=== PATIENT | female | born 1950 | race Caucasian/White ===

== ENCOUNTER → 2017-09-19 | Outpatient (CLI) | payer MEDICARE ==
--- NOTE | 2017-09-20 07:56 | BD ---
EXAMINATION TYPE: Axial Bone Density DATE OF EXAM: 09/19/2017 COMPARISON: 2016 CLINICAL HISTORY: post menopausal Height: 65 Weight: 151.8 FRAX RISK QUESTIONS: History of Fracture in Adulthood: rt wrist RISK FACTORS HISTORY OF: History of Wrist Fracture: right When: 2009 Family History of Osteoporosis: yes Active: yes Postmenopausal woman: yes MEDICATIONS: Additional Medications: cholesterol Additional History: gerd EXAM MEASUREMENTS: Bone mineral densitometry was performed using the [employer] System. Bone mineral density as measured about the Lumbar spine is: ----- L1-L4(G/cm2): 0.904 T Score Values are as follows: ----- L2: -2.3 ----- L3: -2.0 ----- L4: -2.7 ----- L1-L4: -2.3 Bone mineral density has: Decreased -5.2% since study of: 08/07/15 Bone mineral density about the R hip (g/cm2): 0.718 Bone mineral density about the L hip (g/cm2): 0.685 T Score values are as follows: -----R Neck: -2.3 -----L Neck: -2.5 -----R Total: -1.7 -----L Total: -1.8 Bone mineral density has: Decreased -1.5% since study of: 08/07/15 IMPRESSION: Osteopenia (T Score between -2.5 and -1). There is slightly increased risk of fracture and the patient may be considered for treatment. Re-Screen 2-5 years. NOTE: T-SCORE=SD OF THE YOUNG ADULT MEAN.
--- NOTE | 2017-09-20 10:39 | MM ---
Reason for exam: screening (asymptomatic). Last mammogram was performed 1 year and 6 months ago. History: Patient is postmenopausal. Family history of premenopausal breast cancer in sister at age 50 and breast cancer in mother at age 70. Took hormonal contraceptives for 2 years 6 months beginning at age 21. Took estrogen for 3 years beginning at age 49. Took progesterone for 3 years beginning at age 49. Physical Findings: A clinical breast exam by your physician is recommended on an annual basis and results should be correlated with mammographic findings. MG 3D Screening Mammo W/Cad Bilateral CC and MLO view(s) were taken. Prior study comparison: March 08, 2016, bilateral MG 3d screening mammo w/cad. February 20, 2015, bilateral MG screening mammo w CAD. There are scattered fibroglandular densities. No significant changes when compared with prior studies. ASSESSMENT: Benign, BI-RAD 2 RECOMMENDATION: Routine screening mammogram of both breasts in 1 year.
== END | disposition home or self-care (01) ==
LOC: RADMAMWWP 14:01
PROVIDERS: ATTEND Family Medicine
DX: Z12.31 Encounter for screening mammogram for malignant neoplasm of breast (principal); M85.80 Other specified disorders of bone density and structure, unspecified site; Z78.0 Asymptomatic menopausal state
CPT/HCPCS: 77063; 77067; 77080

== ENCOUNTER → 2018-08-28 | Outpatient (CLI) | payer MEDICARE ==
--- NOTE | 2018-09-12 23:35 | EM ---
EVENT MONITOR REFERRING PHYSICIAN: Dr. De Jesus. INDICATIONS: Palpitations. CLINICAL INFORMATION: The patient was monitored for 7 days. The baseline rhythm appeared to be a sinus mechanism. The patient did have multiple episodes of sinus tachycardia. Also, she did have multiple episodes of paroxysmal atrial tachycardia with a heart rate around 150 beats per minute. The patient also did have 1 episode of nonsustained ventricular tachycardia. No evidence of sinus pause or sinus arrest seen. No evidence of any advanced AV block seen. CONCLUSION: 1. This is a 7 days event monitor. 2. The patient did have multiple episode of paroxysmal atrial tachycardia. 3. The patient did have multiple episodes of sinus bradycardia with a heart rate in the 50s. 4. The patient did have 1 episode of nonsustained ventricular tachycardia. 5. No evidence of any sinus pause or sinus arrest. 6. There is no evidence of any advanced AV block seen. MMODL / KAYN: [id number] /
== END | disposition home or self-care (01) ==
LOC: RADECHMAIN 11:49
PROVIDERS: ATTEND Family Medicine
DX: I47.1 Supraventricular tachycardia (principal); I47.2 Ventricular tachycardia; R00.1 Bradycardia, unspecified
CPT/HCPCS: 93225

== ENCOUNTER → 2018-09-26 | Outpatient (CLI) | payer MEDICARE ==
--- NOTE | 2018-09-27 09:40 | MM ---
Reason for exam: screening (asymptomatic). Last mammogram was performed 1 year ago. History: Patient is postmenopausal. Family history of premenopausal breast cancer in sister at age 50 and breast cancer in mother at age 70. Took hormonal contraceptives for 2 years 6 months beginning at age 21. Took estrogen for 3 years beginning at age 49. Took progesterone for 3 years beginning at age 49. Physical Findings: A clinical breast exam by your physician is recommended on an annual basis and results should be correlated with mammographic findings. MG 3D Screening Mammo W/Cad Bilateral CC and MLO view(s) were taken. Prior study comparison: September 19, 2017, bilateral MG 3d screening mammo w/cad. March 08, 2016, bilateral MG 3d screening mammo w/cad. The breast tissue is heterogeneously dense. This may lower the sensitivity of mammography. No significant changes when compared with prior studies. ASSESSMENT: Benign, BI-RAD 2 RECOMMENDATION: Routine screening mammogram of both breasts in 1 year.
== END | disposition home or self-care (01) ==
LOC: RADMAMWWP 15:15
PROVIDERS: ATTEND Family Medicine
DX: Z12.31 Encounter for screening mammogram for malignant neoplasm of breast (principal); Z80.3 Family history of malignant neoplasm of breast
CPT/HCPCS: 77063; 77067

== ENCOUNTER → 2019-11-12 | Outpatient (CLI) | payer MEDICARE ==
--- NOTE | 2019-11-13 09:04 | BD ---
EXAMINATION TYPE: Axial Bone Density DATE OF EXAM: 11/12/2019 COMPARISON: NONE CLINICAL HISTORY: Height: 5 ft 4 3/4 in Weight: 154 FRAX RISK QUESTIONS: Alcohol (3 or more units per day): NO Family History (Parent hip fracture): NO Glucocorticoids (More than 3mos): NO (Ex: prednisone, prednisolone, methylprednisolone, dexamethasone, and hydrocortisone). History of Fracture in Adulthood: YES Secondary Osteoporosis: 1. Type 1 Diabetes: NO 2. Hyperthyroidism: NO 3. Menopause before 45: NO 4. Malnutrition: NO 5. Chronic liver disease: NO Rheumatoid Arthritis: NO Current Tobacco Use: NO RISK FACTORS HISTORY OF: History of Wrist Fracture: RT WRIST When: 2010 Family History of Osteoporosis: YES Active: YES Postmenopausal woman: AGE 50 Take estrogen and/or progesterone medications: TOOK HRT FROM [age] Lost more than 2 inches in height since high school: YES MEDICATIONS: ,Additional Medications: CRESTOR, ASPIRIN, ACID REFLUX MEDS NEEDED , Additional History: EXAM MEASUREMENTS: Bone mineral densitometry was performed using the [employer] System. Bone mineral density as measured about the Lumbar spine is: ----- L1-L4(G/cm2): 0.954 T Score Values are as follows: ----- L2: -2.3 ----- L3: -1.7 ----- L4: -2.1 ----- L1-L4: -1.9 Bone mineral density has: INCREASED 3.8 % since study of: 2017 Bone mineral density about the R hip (g/cm2): 0.736 Bone mineral density about the L hip (g/cm2): 0.724 T Score values are as follows: -----R Neck: -2.2 -----L Neck: -2.3 -----R Total: -1.5 -----L Total: -1.8 Bone mineral density has: INCREASED 2.5 % since study of: 2014 IMPRESSION: Osteopenia noted. NOTE: T-SCORE=SD OF THE YOUNG ADULT MEAN.
--- NOTE | 2019-11-19 10:29 | MM ---
Reason for exam: screening (asymptomatic). Last mammogram was performed 1 year and 1 month ago. History: Patient is postmenopausal. Family history of premenopausal breast cancer in sister at age 50 and breast cancer in mother at age 70. Took hormonal contraceptives for 2 years 6 months beginning at age 21. Took estrogen for 3 years beginning at age 49. Took progesterone for 3 years beginning at age 49. Physical Findings: A clinical breast exam by your physician is recommended on an annual basis and results should be correlated with mammographic findings. MG 3D Screening Mammo W/Cad Bilateral CC and MLO view(s) were taken. Prior study comparison: September 26, 2018, bilateral MG 3d screening mammo w/cad. September 19, 2017, bilateral MG 3d screening mammo w/cad. There are scattered fibroglandular densities. No significant changes when compared with prior studies. ASSESSMENT: Benign, BI-RAD 2 RECOMMENDATION: Routine screening mammogram of the right breast in 1 year.
== END | disposition home or self-care (01) ==
LOC: RADMAMWWP 15:24
PROVIDERS: ATTEND Family Medicine
DX: Z12.31 Encounter for screening mammogram for malignant neoplasm of breast (principal); M81.0 Age-related osteoporosis without current pathological fracture
CPT/HCPCS: 77063; 77067; 77080

== ENCOUNTER → 2021-01-27 | Outpatient (CLI) | payer MEDICARE ==
--- NOTE | 2021-01-28 10:35 | MM ---
Reason for exam: screening (asymptomatic). Last mammogram was performed 1 year and 3 months ago. History: Patient is postmenopausal. Family history of premenopausal breast cancer in sister at age 50 and breast cancer in mother at age 70. Took hormonal contraceptives for 2 years 6 months beginning at age 21. Took estrogen for 3 years beginning at age 49. Took progesterone for 3 years beginning at age 49. Physical Findings: A clinical breast exam by your physician is recommended on an annual basis and results should be correlated with mammographic findings. MG 3D Screening Mammo W/Cad Bilateral CC and MLO view(s) were taken. Prior study comparison: November 12, 2019, bilateral MG 3d screening mammo w/cad. September 26, 2018, bilateral MG 3d screening mammo w/cad. Benign appearing calcifications in the left breast. No significant changes when compared with prior studies. ASSESSMENT: Benign, BI-RAD 2 RECOMMENDATION: Routine screening mammogram of both breasts in 1 year.
== END | disposition home or self-care (01) ==
LOC: RADMAMWWP 09:19
PROVIDERS: ATTEND Family Medicine
DX: Z12.31 Encounter for screening mammogram for malignant neoplasm of breast (principal); Z80.3 Family history of malignant neoplasm of breast
CPT/HCPCS: 77063; 77067

== ENCOUNTER → 2022-02-09 | Outpatient (CLI) | payer MEDICARE ==
--- NOTE | 2022-02-09 15:30 | BD ---
EXAMINATION TYPE: Axial Bone Density DATE OF EXAM: 02/09/2022 COMPARISON: 11-12-19 CLINICAL HISTORY: 72 years year old Female. ICD-10 CODE: M81.0 osteoporosis Height: 65IN Weight: 156LB FRAX RISK QUESTIONS: History of Fracture in Adulthood: YES Secondary Osteoporosis: RISK FACTORS HISTORY OF: History of Wrist Fracture: YES When: 2010 Family History of Osteoporosis: YES Active: YES Postmenopausal woman: YES Take estrogen and/or progesterone medications: YES, NONE CURRENT How lon-52 Lost more than 2 inches in height since high school: YES MEDICATIONS: Additional Medications: CHOLESTEROL MED, CALCIUM WITH VITAMIN D Additional History: EXAM MEASUREMENTS: Bone mineral densitometry was performed using the [employer] System. Bone mineral density as measured about the Lumbar spine is: ----- L1-L4(G/cm2): 0.969 T Score Values are as follows: ----- L1: -1.6 ----- L2: -2.2 ----- L3: -1.6 ----- L4: -1.9 ----- L1-L4: -1.8 Bone mineral density has: Increased 2.1% since study of: 11-12-19 Bone mineral density about the R hip (g/cm2): 0.821 Bone mineral density about the L hip (g/cm2): 0.777 T Score values are as follows: -----R Neck: -2.2 -----L Neck: -2.1 -----R Total: -1.5 -----L Total: -1.8 Bone mineral density has: Decreased 0.7% since study of: 11-12-19 FRAX%s: The graph provided illustrates a 20.8% chance for a major osteoporotic fx and a 4.7% chance f or the hips probability for fx in 10 years time. IMPRESSION: Osteopenia (T Score between -2.5 and -1). There is slightly increased risk of fracture and the patient may be considered for treatment. Re-Screen 2-5 years. NOTE: T-SCORE=SD OF THE YOUNG ADULT MEAN.
--- NOTE | 2022-02-10 08:15 | MM ---
Reason for Exam: Screening (asymptomatic). Last mammogram was performed 1 year(s) and 1 month(s) ago. Patient History: Menarche at age 11. First Full-Term at age 24. Postmenopausal. Estrogen for 3 years from age 49 until age 52. Progesterone for 3 years from age 49 until age 52. Hormonal Contraceptives for 2 years, 6 months, from age 21 until age 24. Sister had breast cancer, age 50. Mother had breast cancer, age 70. Risk Values: Christelle 5 year model risk: 7.8%. NCI Lifetime model risk: 19.0%. Prior Study Comparison: 09/26/2018 Bilateral Screening Mammogram, [facility]. 11/12/2019 Bilateral Screening Mammogram, [facility]. 01/27/2021 Bilateral Screening Mammogram, [facility]. Tissue Density: The breast tissue is heterogeneously dense. This may lower the sensitivity of mammography. Findings: Analyzed By CAD. There is no suspicious group of microcalcifications or new suspicious mass in either breast. Overall Assessment: Negative, BI-RAD 1 Management: Screening Mammogram of both breasts in 1 year. A clinical breast exam by your physician is recommended on an annual basis and results should be correlated with mammographic findings. Electronically signed and approved by: Gurwinder Williamson M.D. Radiologis
== END | disposition home or self-care (01) ==
LOC: RADMAMWWP 13:49
PROVIDERS: ATTEND Family Medicine
DX: Z12.31 Encounter for screening mammogram for malignant neoplasm of breast (principal); M85.89 Other specified disorders of bone density and structure, multiple sites; Z78.0 Asymptomatic menopausal state; Z80.3 Family history of malignant neoplasm of breast
CPT/HCPCS: 77063; 77067; 77080

== ENCOUNTER → 2022-05-10 | Outpatient (CLI) | payer MEDICARE ==
--- NOTE | 2022-05-10 14:08 | CT ---
EXAMINATION TYPE: CT sinus wo con DATE OF EXAM: 05/10/2022 COMPARISON: None HISTORY: Sinus pressure prior to upcoming route canal. CT DLP: 1308.8 mGycm. Automated Exposure Control for Dose Reduction was Utilized. TECHNIQUE: CT scan of the sinuses is performed without contrast, axial images are obtained, coronal r eformatted images are also reviewed. FINDINGS: The paranasal sinuses including the frontal, ethmoid, sphenoid, and maxillary sinuses bila terally are well-aerated without abnormal opacification. The ostiomeatal complex is patent bilateral ly on the coronal images. Visualized portion of mastoid air cells show no abnormal opacification. The globes are intact bilate rally. Nasal septal deviation noted. Stents of dental artifact noted securing portions of the exam. IMPRESSION: The sinuses are clear and the ostiomeatal complex is patent bilaterally.
== END | disposition home or self-care (01) ==
LOC: RADCTMAIN 13:16
PROVIDERS: ATTEND Otolaryngology
DX: J32.9 Chronic sinusitis, unspecified (principal)
CPT/HCPCS: 70486

== ENCOUNTER → 2023-02-28 | Outpatient (CLI) | payer MEDICARE ==
--- NOTE | 2023-03-01 19:16 | MM ---
Reason for Exam: Screening (asymptomatic). Last screening mammogram was performed 12 month(s) ago. Patient History: Menarche at age 11. First Full-Term at age 24. Postmenopausal. Estrogen for 3 years from age 49 until age 52. Progesterone for 3 years from age 49 until age 52. Hormonal Contraceptives for 2 years, 6 months, from age 21 until age 24. Sister had breast cancer, age 50. Mother had breast cancer, age 70. Risk Values: Christelle 5 year model risk: 7.8%. NCI Lifetime model risk: 18.1%. Prior Study Comparison: 11/12/2019 Bilateral Screening Mammogram, [facility]. 01/27/2021 Bilateral Screening Mammogram, [facility]. 02/09/2022 Bilateral MG 3D screening mammo w/cad, [facility]. Tissue Density: There are scattered fibroglandular densities. Findings: Analyzed By CAD. Asymmetric density superior aspect of the left breast remains unchanged. There is no suspicious group of microcalcifications or new suspicious mass in either breast. Overall Assessment: Benign, BI-RAD 2 Management: Screening Mammogram of both breasts in 1 year. See note below in regards to patient's increased five-year Christelle score. Patient should continue monthly self-breast exams. A clinical breast exam by your physician is recommended on an annual basis. This exam should not preclude additional follow-up of suspicious palpable abnormalities. Note on Christelle scores and lifetime risk: 1. A Christelle score greater than 3% is considered moderate risk. If this is the case, consider specialist referral to assess eligibility for a risk reducing agent. 2. If overall lifetime risk for the development of breast cancer is 20% or higher, the patient may qualify for future screening with alternating mammogram and breast MRI. Electronically signed and approved by: Ijeoma Newby M.D. Radiologist
== END | disposition home or self-care (01) ==
LOC: RADMAMWWP 14:38
PROVIDERS: ATTEND Family Medicine
DX: Z12.31 Encounter for screening mammogram for malignant neoplasm of breast (principal); Z78.0 Asymptomatic menopausal state; Z80.3 Family history of malignant neoplasm of breast
CPT/HCPCS: 77063; 77067

== ENCOUNTER 2023-05-25 05:49 | Day surgery (SDC) | payer MEDICARE ==
[2023-05-25] MEDS ORDERED: HEPARIN SODIUM,PORCINE 10,000 UNIT in SODIUM CHLORIDE 0.9% 1,000 ML IRRIGATION PRN (05:54)
[2023-05-25] MEDS ORDERED: ALPRAZolam 0.25 MG TAB PO PRN (05:54)
[2023-05-25] MEDS ORDERED: ALPRAZolam 0.5 MG TAB PO PRN (05:54)
[2023-05-25] MEDS ORDERED: NITROGLYCERIN SL TABS 0.4 MG TAB SUBLINGUAL PRN ×2 (05:54→09:03)
[2023-05-25] MEDS ORDERED: HEPARIN SODIUM,PORCINE (1 ML) 2,500 UNIT in SODIUM CHLORIDE 0.9% 250 ML IRRIGATION PRN (05:54)
[2023-05-25] MEDS: SODIUM CHLORIDE 0.9% 1,000 ML IV ONE (06:09)
[2023-05-25 06:37] LABS: Basophils # (A) 0.1 k/uL (0-0.2); Basophils % (A) 1 %; Eosinophils # (A) 0.2 k/uL (0-0.7); Eosinophils % (A) 4 %; HCT 42.2 % (34.0-46.0); HGB 13.8 gm/dL (11.4-16.0); Lymphocytes # (A) 1.5 k/uL (1.0-4.8); Lymphocytes % (A) 21 %; MCH 28.9 pg (25.0-35.0); MCHC 32.7 g/dL (31.0-37.0); MCV 88.3 fL (80.0-100.0); Monocytes # (A) 0.4 k/uL (0-1.0); Monocytes % (A) 6 %; Neutrophils # (A) 4.6 k/uL (1.3-7.7); Neutrophils % (A) 66 %; Platelet Count 219 k/uL (150-450); RBC 4.78 m/uL (3.80-5.40); RDW 12.4 % (11.5-15.5)
[2023-05-25 06:57] LABS: African American GFR (CKD) >90 (>60 ml/min/1.73 sqM); Anion Gap 8 mmol/L; Blood Urea Nitrogen 21 mg/dL (7-17); Calcium 9.3 mg/dL (8.4-10.2); Carbon Dioxide 24 mmol/L (22-30); Chloride 106 mmol/L (98-107); Glucose 107 mg/dL (74-99); Non-African American GFR(CKD) 82 (>60 ml/min/1.73 sqM); Sodium 138 mmol/L (137-145)
[2023-05-25] MEDS ORDERED: LIDOCAINE 1% INJ 10MG/ML (20 ML MDV) ONE ×2 (07:16→07:25)
[2023-05-25] MEDS ORDERED: VERAPAMIL 2.5 MG/ML 2 ML AMP ONE (07:16)
[2023-05-25] MEDS ORDERED: HEPARIN SODIUM 1,000 UN/ML (10ML VL) ONE (07:17)
[2023-05-25] MEDS ORDERED: fentaNYL (PF) 50 MCG/ML 2 ML AMP ONE (07:17)
[2023-05-25] MEDS: fentaNYL (PF) 50 MCG/ML 2 ML AMP IVP ONE (07:39)
[2023-05-25] MEDS: LIDOCAINE 1% INJ 10MG/ML (20 ML MDV) SQ ONE (07:42)
[2023-05-25] MEDS: HEPARIN SODIUM 1,000 UN/ML (10ML VL) IVP ONE (08:05)
[2023-05-25] MEDS ORDERED: CLOPIDOGREL 75 MG TAB ONE (08:05)
[2023-05-25] MEDS: CLOPIDOGREL 75 MG TAB PO ONE (08:07)
[2023-05-25] MEDS: IOPAMIDOL-370 100ML BTL INJ ONE ×2 (08:23→08:49)
[2023-05-25] MEDS: NITROGLYCERIN 1000MCG/10ML SYRINGE INTRACORON ONE (08:31)
[2023-05-25] MEDS: MIDAZOLAM 2 MG/2 ML VIAL IVP ONE (08:36)
[2023-05-25] MEDS ORDERED: RX INFO: IV CONTRAST WAS GIVEN 1 EACH MISC MISCELLANE PRN (09:03)
[2023-05-25] MEDS ORDERED: MAG HYDROX/AL HYDROX/SIMETH 30 ML CUP PO PRN (09:03)
[2023-05-25] MEDS ORDERED: ATROPINE SULFATE 0.1 MG/ML 10ML SYRINGE IV PRN (09:03)
[2023-05-25] MEDS ORDERED: ZOLPIDEM 5 MG TAB PO PRN (09:03)
--- NOTE | 2023-05-25 09:16 | P.CARDCATH ---
Date of Procedure: 05/25/23 Description of Procedure: Cardiac Catheterization: The patient is a 73-year-old female with history of hyperlipidemia who has been complaining of progressive dyspnea on exertion for the last few months and had an EKG showing new ST segment and T wave changes inferiorly. Recommendations were made regarding cardiac catheterization, the risks and the complications were discussed with the patient who is in full understanding and agreement. Procedure Description: Patient was brought to cleaner laboratory equipment in fasting semi-sedated state after receiving Fentanyl and Benadryl achieiving moderate conscious sedated state. Using Xylocaine Anesthesia and modified Seldinger technique, using micropuncture technique a 6-Moldovan sheath was introduced in the right femoral artery . Attempt to cannulate the right radial artery were unsuccessful because of vasospasm. Subsequently, selective coronary angiography was performed using a 6-Moldovan 4 bend Suman catheter. Multiple views of the coronary artery including hemiaxial views were obtained. The 6 Moldovan pigtail catheter was used to cross the aortic valve and LVEDP was calculated. PCI: Using a 6 Moldovan FR 4 guiding catheter the right coronary ostium was cannulated, subsequently a 0.014 BMW J-wire was positioned distally. A 2.5 x 12 mm trek balloon was advanced and inflation at 8 bailey was done, subsequently a [employer] [place] eye IVUS catheter was introduced and images were obtained. After that a 2.75 x 23 mm Xience latha point stent was deployed at 16 bailey and after removing the balloon a 2.75 x 15 mm Xience latha point stent was deployed proximal to the first 1 at 16 bailey. Repeat IVUS images were obtained and subsequently a 3.0 x 20 mm NC trek balloon was advanced and inflations in the stents at 10 bailey were done. After the last inflation the wire withdrawn back in the getting catheter and images were obtained and revealed stable successful stenting. Following that, catheter and sheath were removed. Hemostasis was obtained with deployment of an Angio-Seal. There was no immediate complication. Patient was returned to room in stable condition. Of note, the patient received a total of 5500 units of intravenous heparin as well as intra-arterial verapamil. She received an oral loading dose of clopidogrel. Her ACT was monitored. She had mild chest dis comfort that resolved at the end of the procedure. Findings: Left main: This is a large size vessel, bifurcating into LAD and left circumflex, left main has no obstructive disease. LAD: This is a large size vessel reaching to the apex with a wraparound apex segment. The LAD at the takeoff of the first septal dry lumber grader has a 40 to 50% plaque, there is mild intimal disease proximal to it, the rest of the vessel has no high-grade stenosis Left circumflex: This is a nondominant vessel, large in caliber, giving rise to a large obtuse marginal branch that has intimal disease of 20 to 30% with no high-grade stenosis RCA: This is a dominant vessel bifurcating distally to PDA and PLV. The proximal left circumflex has 50 to 60% plaque, the mid has a 99% plaque with slow flow distally. There is collateral from the left coronary system toward the right PDA and PLV Left Ventriculogram: Not performed Hemodynamics: There was no gradient across the aortic valve, LVEDP was 20-22 mmHg Conclusion: 1. Subtotally occluded mid RCA with moderate to severe disease in the proximal segment 2. Moderate disease in the proximal LAD 3. Mild disease in the left circumflex 4. Successful stenting of the proximal and mid RCA with reduction of stenosis from 99% to 0% with adjunctive IVUS imaging Recommendations: The patient will continue on aspirin and clopidogrel for 6 months in addition to aggressive coronary risks modification, maintaining LDL less than 70 mg/dL. The findings and the recommendations were discussed with the patient and the family and they were in full understanding and agreement. Duration of sedation is 68 minutes.
[2023-05-25] MEDS: ASPIRIN 325 MG TAB PO ONE (11:15)
[2023-05-25] MEDS: METOPROLOL TARTRATE 25 MG TAB PO SCH (11:16)
[2023-05-25] MEDS: ACETAMINOPHEN TAB 325 MG TAB ONE (11:26)
[2023-05-25] MEDS: ATORVASTATIN 80 MG TAB PO ONE (13:04)
[2023-05-25] MEDS: SODIUM CHLORIDE 0.9% 1,000 ML in EMPTY BAG 1 BAG IV SCH ×2 (13:06)
[2023-05-25] MEDS: AMOXIC-POT CLAV 875-125MG 1 EACH TAB PO SCH (13:50)
[2023-05-25 14:48] VITALS: BMI 25.1
[2023-05-26 05:22] VITALS: TEMP 97.7
[2023-05-26 06:30] LABS: African American GFR (CKD) >90 (>60 ml/min/1.73 sqM); Anion Gap 2 mmol/L; Blood Urea Nitrogen 13 mg/dL (7-17); Calcium 8.8 mg/dL (8.4-10.2); Carbon Dioxide 28 mmol/L (22-30); Chloride 109 mmol/L (98-107); Glucose 94 mg/dL (74-99); Non-African American GFR(CKD) 84 (>60 ml/min/1.73 sqM); Potassium 4.5 mmol/L (3.5-5.1); Sodium 139 mmol/L (137-145)
--- NOTE | 2023-05-26 07:30 | P.PN ---
Subjective Progress Note Date: 05/26/23 PROGRESS NOTE The patient is a 73-year-old female with history of hypertension and hyperlipidemia who has been complaining of progressive dyspnea and had an abnormal EKG underwent cardiac catheterization yesterday and was found to have a septal totally occluded mid RCA and underwent stenting of that vessel, she is doing well this morning. She denies any chest discomfort, dizziness or palpitations. She denies any nausea or vomiting. Medications: Aspirin, Plavix 75 mg daily, metoprolol tartrate 25 mg twice a day, rosuvastatin 10 mg daily, PHYSICAL EXAMINATION: Blood pressure 109/60 heart rate 60 LUNGS: Clear to auscultation HEART: Regular rate and rhythm, S1, S2. No S3. No systolic murmur ABDOMEN: Soft, nontender, no organomegaly EXTREMETIES: No edema, right radial pulse intact, right groin no hematoma LAB: Potassium 4.5, BUN 13, creatinine 1.72, EKG with T wave inversion inferiorly and no new changes IMPRESSION: 1. Status post stenting of the proximal and mid RCA 2. History of hyperlipidemia PLAN: 1. Continue present therapy with dual antiplatelet treatment for 6 months 2. Increase physical activity 3. Discharge home today 4. Follow-up as an outpatient Objective - Vital Signs Vital signs: Vital Signs Temp 97.7 F 05/26/23 04:26 Pulse 69 05/26/23 04:26 Resp 15 05/26/23 04:26 BP 109/62 05/26/23 04:26 Pulse Ox 96 05/26/23 04:26 FiO2 Intake & Output 05/25/23 05/26/23 05/26/23 18:59 06:59 18:59 Intake Total 365 Output Total 600 Balance -235 Weight 68.5 kg Intake: IV 125 Oral 240 Output: Urine 600 Other: # Voids 1 1 - Labs CBC & Chem 7: 05/25/23 06:10 05/26/23 04:58 Labs: Abnormal Lab Results - Last 24 Hours (Table) 05/26/23 Range/Units 04:58 Chloride 109 H (98-107) mmol/L
[2023-05-26] MEDS: NON FORMULARY DRUG (Rosuvastatin 10 MG Tablet) PO SCH (09:00)
[2023-05-26] MEDS: CLOPIDOGREL 75 MG TAB PO SCH (09:16)
[2023-05-26] MEDS: ASPIRIN 81 MG PO SCH (09:16)
[2023-05-26 09:22] VITALS: BP 130/57; PULSE 57; RESP 18
[2023-05-26] MEDS: ACETAMINOPHEN TAB 325 MG TAB PO PRN (09:45)
== END 2023-05-26 12:15 | disposition home or self-care (01) ==
LOC: CATHCVL 05:49 → 6NMEDSUR 11:03 → CATHCVL 05-26 12:15
PROVIDERS: ATTEND Internal Medicine Interventional Cardiology
DX: I25.10 Atherosclerotic heart disease of native coronary artery without angina pectoris (principal); E78.5 Hyperlipidemia, unspecified; Z79.82 Long term (current) use of aspirin; Z95.5 Presence of coronary angioplasty implant and graft; Z82.49 Family history of ischemic heart disease and other diseases of the circulatory system
CPT/HCPCS: 92978; 93458; 80048 ×2; 85025; C9600; C1769 ×3; C1760; C1887; C1894 ×2; C1725 ×2; C1753; C1874 ×2; J2250; J2001; J3010; J1644; Q9967; J2305

== ENCOUNTER → 2024-04-17 | Outpatient (CLI) | payer MEDICARE ==
--- NOTE | 2024-04-17 11:46 | BD ---
EXAMINATION TYPE: Axial Bone Density DATE OF EXAM: 04/17/2024 CLINICAL HISTORY: 74 years old Female. ICD-10 CODE: M899 DISORDER OF BONE , Additional History: Height: 64.5 in Weight: 154 lbs FRAX RISK QUESTIONS: History of Fracture in Adulthood: rt wrist age 65 History of Wrist Fracture: rt wrist age 65 MEDICATIONS: Osteoporosis Medications: not now Which medication: Fosamax How Lon months EXAM MEASUREMENTS: Bone mineral densitometry was performed using the [employer] System. Bone mineral density as measured about the Lumbar spine is: ----- L1-L4(G/cm2): 1.010 T Score Values are as follows: ----- L1: -1.5 ----- L2: -2.0 ----- L3: -1.1 ----- L4: -1.3 ----- L1-L4: -1.4 Z Score Values are as follows: ----- L1: 0.1 ----- L2: -0.4 ----- L3: 0.5 ----- L4: 0.3 ----- L1-L4: 0.2 Bone mineral density has: Increased 4.2% since study of: 02/09/2022 Bone mineral density about the R hip (g/cm2): 0.816 Bone mineral density about the L hip (g/cm2): 0.760 T Score values are as follows: -----R Neck: -2.1 -----L Neck: -2.2 -----R Total: -1.5 -----L Total: -2.0 Z Score values are as follows: -----R Neck: -0.3 -----L Neck: -0.4 -----R Total: 0.1 -----L Total: -0.4 Bone mineral density has: Decreased -1.4% since study of: 02/09/2022 FRAX%s: The graph provided illustrates a 21.9% chance for a major osteoporotic fx and a 5.7% chance f or the hips probability for fx in 10 years time. IMPRESSION: Osteopenia (T Score between -2.5 and -1). There is slightly increased risk of fracture and the patient may be considered for treatment. Re-Screen 2-5 years. NOTE: T-SCORE=SD OF THE YOUNG ADULT MEAN. [facility], , 04/17/2024 11:44 AM
--- NOTE | 2024-04-17 12:06 | MM ---
Reason for Exam: Screening (asymptomatic). Last mammogram was performed 1 year(s) and 2 month(s) ago. Patient History: Menarche at age 11. First Full-Term at age 24. Postmenopausal. Estrogen for 3 years from age 49 until age 52. Progesterone for 3 years from age 49 until age 52. Hormonal Contraceptives for 2 years, 6 months, from age 21 until age 24. Sister had breast cancer, age 50. Mother had breast cancer, age 70. Risk Values: Christelle 5 year model risk: 7.8%. NCI Lifetime model risk: 17.1%. Prior Study Comparison: 01/27/2021 Bilateral Screening Mammogram, [facility]. 02/09/2022 Bilateral MG 3D screening mammo w/cad, [facility]. 02/28/2023 Bilateral MG 3D screening mammo w/cad, [facility]. Tissue Density: There are scattered areas of fibroglandular density. Findings: Analyzed By CAD. Right breast: There is no suspicious group of microcalcifications or new suspicious mass. Left breast: There is no suspicious group of microcalcifications or new suspicious mass. Overall Assessment: Negative, BI-RAD 1 Management: Screening Mammogram of both breasts in [address] [facility] will attempt to contact patient to return for supplemental views and ultrasound if indicated. Patient should continue monthly self-breast exams. A clinical breast exam by your physician is recommended on an annual basis. This exam should not preclude additional follow-up of suspicious palpable abnormalities. Note on Christelle scores and lifetime risk: 1. A Christelle score greater than 3% is considered moderate risk. If this is the case, consider specialist referral to assess eligibility for a risk reducing agent. 2. If overall lifetime risk for the development of breast cancer is 20% or higher, the patient may qualify for future screening with alternating mammogram and breast MRI. [facility], , 04/17/2024 12:03 PM. Electronically signed and approved by: Adelso Muñiz DO
== END | disposition home or self-care (01) ==
LOC: RADMAMWWP 10:58
PROVIDERS: ATTEND Family Medicine
DX: Z12.31 Encounter for screening mammogram for malignant neoplasm of breast (principal); M89.9 Disorder of bone, unspecified; Z78.0 Asymptomatic menopausal state; Z80.3 Family history of malignant neoplasm of breast; R92.323 Mammographic fibroglandular density, bilateral breasts; M85.80 Other specified disorders of bone density and structure, unspecified site
CPT/HCPCS: 77063; 77067; 77080